=== PATIENT | male | born 1965 | race Native Hawaiian/Other Pacific Islander ===

== ENCOUNTER 2023-05-06 14:41 | Emergency (ER) | payer OTHER ==
[~2023-05-06] VITALS: Ht 177.8 cm; Wt 89.4 kg
[2023-05-06 14:49] VITALS: TEMP 98.1
[2023-05-06 17:24] VITALS: BP 154/91
== END 2023-05-06 17:25 | disposition home or self-care (01) ==
LOC: ED 14:41
DX: S02.2XXA Fracture of nasal bones, initial encounter for closed fracture (principal); S01.21XA Laceration without foreign body of nose, initial encounter; W22.8XXA Striking against or struck by other objects, initial encounter
CPT/HCPCS: 90471; 90715; 99283